=== PATIENT | female | born 1965 | race Caucasian/White ===

== ENCOUNTER 2018-02-18 16:28 | Observation (INO) | payer OTHER ==
[~2018-02-18] VITALS: Ht 160 cm; Wt 68.5 kg
[2018-02-18] MEDS ORDERED: KETOROLAC TROMETHAMINE 30 MG/ML VIAL IV STA (16:59)
[2018-02-18 17:36] LABS: BASOPHILS # (AUTO) 0.1 (0.0-0.1); BASOPHILS % 0.4 % (0.0-1.0); EOSINOPHILS # (AUTO) 0.4 (0.0-0.4); EOSINOPHILS % 3.5 % (0.0-6.0); HEMATOCRIT 40.2 % (34.2-44.1); LYMPHOCYTES % 17.3 % (18.0-39.1); MEAN CORPUSCULAR HEMOGLOBIN 29.4 pg (28-32); MEAN CORPUSCULAR HGB CONC 34.8 g/dL (31-35); MEAN CORPUSCULAR VOLUME 84.5 fL (81-99); MONOCYTES # (AUTO) 0.5 (0.2-0.8); MONOCYTES % 4.4 % (4.4-11.3); NEUTROPHILS # (AUTO) 8.7 (2.1-6.9); NEUTROPHILS % 74.1 % (38.7-80.0); PLATELET COUNT 324 x10e3/uL (140-360); RED BLOOD COUNT 4.76 x10e6/uL (3.6-5.1); RED CELL DISTRIBUTION WIDTH 13.1 % (11.7-14.4)
[2018-02-18 17:43] LABS: CLARITY,URINE SL CLOUDY (CLEAR); COLOR,URINE YELLOW (YELLOW); LEUKOCYTE ESTERASE ,URINE NEGATIVE (NEGATIVE); NITRITE,URINE NEGATIVE (NEGATIVE); PROTEIN,URINE DIPSTICK TRACE (NEGATIVE)
[2018-02-18 17:44] LABS: BILIRUBIN,URINE NEGATIVE (NEGATIVE); KETONES,URINE 1+ (NEGATIVE); URINE UROBILINOGEN 0.2 mg/dL (0.2 - 1)
[2018-02-18 17:50] LABS: ALANINE AMINOTRANSFERASE 28 IU/L (0-55); ALBUMIN 4.6 g/dL (3.5-5.0); ALBUMIN/GLOBULIN RATIO 2.1 (0.8-2.0); ALKALINE PHOSPHATASE 78 IU/L (40-150); ANION GAP 17.6 mmol/L (8-16); BLOOD UREA NITROGEN 16 mg/dL (7-26); BUN/CREATININE RATIO 18 (6-25); CALCIUM 10.3 mg/dL (8.4-10.2); CARBON DIOXIDE 24 mmol/L (22-29); CHLORIDE 103 mmol/L (98-107); CREATININE, SERUM 0.91 mg/dL (0.57-1.11); EST GLOMERULAR FILTRATION RATE > 60 ML/MIN (60-); GLUCOSE 126 mg/dL (74-118); POTASSIUM 4.6 mmol/L (3.5-5.1); SODIUM 140 mmol/L (136-145)
[2018-02-18 17:55] LABS: BACTERIA,URINE MODERATE /HPF; EPITHELIAL CELLS,URINE MANY /LPF; MUCUS,URINE MODERATE (RARE); WBC,URINE (MAN) 0-5 /HPF (0-5)
[2018-02-18] MEDS ORDERED: FLOMAX0.4 MG PO (18:31)
[2018-02-18] MEDS: SODIUM CHLORIDE 0.9% 1000ML 1,000 ML IV SCH ×2 (18:35→21:29)
--- NOTE | 2018-02-18 18:35 | Diagnostic Imaging Report ---
EXAMINATION: CT of the abdomen and pelvis without contrast. TECHNIQUE: Spiral CT images of the abdomen and pelvis were performed from the lung bases to the lesser trochanters. No intravenous contrast was given per renal stone protocol. Coronal and sagittal reformatted images were obtained. COMPARISON: None. CLINICAL HISTORY:Flank pain radiating to left lower quadrant DISCUSSION: ABSENCE OF INTRAVENOUS CONTRAST DECREASES SENSITIVITY FOR DETECTION OF FOCAL LESIONS AND VASCULAR PATHOLOGY. ABDOMEN/PELVIS: LOWER THORAX: Unremarkable. HEPATOBILIARY: Normal hepatic size and contour. 6 mm hypodense lesion in hepatic segment ) series 3, image 41), measures fluid density, consistent with a simple cyst. No other focal lesions. No intra or extrahepatic biliary ductal dilation. GALLBLADDER: No radio-opaque stones or sludge. No wall thickening. SPLEEN: No splenomegaly. PANCREAS: No focal masses or ductal dilatation. ADRENALS: No adrenal nodules. KIDNEYS/URETERS: Left: 8 mm obstructing calculus in the left UPJ, which results in mild to moderate hydronephrosis (series 3, image 76 and coronal image 45). Punctate nonobstructing calculus in the left interpolar region (series 3, image 64). No other left renal or ureteral calculi. No contour abnormalities. No significant perinephric stranding. Right: No renal or ureteral calculi, hydronephrosis or obstruction. No contour abnormalities. No significant perinephric stranding. PELVIC ORGANS/BLADDER: Bladder is unremarkable, without wall thickening or focal lesions. Uterus is unremarkable. No adnexal masses. PERITONEUM/RETROPERITONEUM: No free air or fluid. LYMPH NODES: No intra-abdominal,retroperitoneal, pelvic or inguinal lymphadenopathy. VESSELS: Minimal atherosclerotic calcification of the distal abdominal aorta. GI TRACT: No bowel dilation or evidence of obstruction. Distal descending and sigmoid colon diverticulosis, without diverticulitis. BONES AND SOFT TISSUES: No aggressive lytic lesions. Soft tissues are unremarkable. IMPRESSION: 1. 8 mm nonobstructing calculus in the left UPJ, which results in mild to moderate hydronephrosis. 2. Punctate nonobstructing calculus in the left interpolar region. Signed by: Dr. Morgan Anne M.D. on 02/18/2018 6:31 PM
[2018-02-18] MEDS ORDERED: ONDANSETRON HCL INJ 2 MG/ML VIAL IV PRN (19:00)
[2018-02-18] MEDS ORDERED: MORPHINE SULFATE 2 MG/ML SYR IV PRN (19:00)
[2018-02-18] MEDS ORDERED: MORPHINE SULFATE INJ 4 MG/ML INJ IV PRN (19:15)
[2018-02-18] MEDS ORDERED: LOSARTAN POTASS25 MG (20:19)
[2018-02-18 20:35] VITALS: BP 146/94
[2018-02-18 21:01] VITALS: BP 146/94
[2018-02-18 23:20] VITALS: BP 127/64
[2018-02-19] MEDS: SODIUM CHLORIDE 0.9% 1000ML 1,000 ML IV SCH ×4 (02:55→14:16)
[2018-02-19 05:00] VITALS: BP 143/65
[2018-02-19 05:00] LABS: BASOPHILS % 0.6 % (0.0-1.0); EOSINOPHILS # (AUTO) 0.3 (0.0-0.4); EOSINOPHILS % 4.4 % (0.0-6.0); HEMATOCRIT 35.8 % (34.2-44.1); HEMOGLOBIN 12.1 g/dL (12.0-16.0); LYMPHOCYTES # (AUTO) 2.3 (1.0-3.2); LYMPHOCYTES % 31.1 % (18.0-39.1); MEAN CORPUSCULAR HEMOGLOBIN 29.1 pg (28-32); MEAN CORPUSCULAR HGB CONC 33.8 g/dL (31-35); MEAN CORPUSCULAR VOLUME 86.1 fL (81-99); MONOCYTES # (AUTO) 0.5 (0.2-0.8); MONOCYTES % 6.6 % (4.4-11.3); NEUTROPHILS # (AUTO) 4.1 (2.1-6.9); NEUTROPHILS % 56.7 % (38.7-80.0); PLATELET COUNT 253 x10e3/uL (140-360); RED BLOOD COUNT 4.16 x10e6/uL (3.6-5.1); RED CELL DISTRIBUTION WIDTH 13.1 % (11.7-14.4)
[2018-02-19 05:18] LABS: ALANINE AMINOTRANSFERASE 21 IU/L (0-55); ALBUMIN 3.4 g/dL (3.5-5.0); ALBUMIN/GLOBULIN RATIO 1.7 (0.8-2.0); ALKALINE PHOSPHATASE 60 IU/L (40-150); BLOOD UREA NITROGEN 13 mg/dL (7-26); BUN/CREATININE RATIO 15 (6-25); CALCIUM 8.9 mg/dL (8.4-10.2); CARBON DIOXIDE 24 mmol/L (22-29); CHLORIDE 112 mmol/L (98-107); CREATININE, SERUM 0.85 mg/dL (0.57-1.11); EST GLOMERULAR FILTRATION RATE > 60 ML/MIN (60-); GLUCOSE 136 mg/dL (74-118); SODIUM 143 mmol/L (136-145)
[2018-02-19 07:51] VITALS: BP 110/55
[2018-02-19 11:45] VITALS: BP 131/66
[2018-02-19] MEDS ORDERED: ACETAMINOPHEN 325 MG TAB PO PRN (12:15)
--- NOTE | 2018-02-19 14:43 | Consultation ---
DATE OF CONSULTATION: February 19, 2018 UROLOGY CONSULTATION CONSULTATION CALLED BY: , emergency room. CHIEF COMPLAINT/REASON FOR CONSULTATION: Kidney stone. HISTORY OF PRESENT ILLNESS: Emy Morley is a 52-year-old female with a history of 1 day left-sided acute sharp severe flank pain, 10/10, greater in the anterior abdomen. Denied dysuria. Denied hematuria. Denied fevers. No chills. PAST MEDICAL HISTORY: Kidney stones. MEDICATIONS: Please see MAR. ALLERGIES: NKDA. SOCIAL HISTORY: Denied smoking or drinking. FAMILY HISTORY: Denies urologic stones or malignancies. REVIEW OF SYSTEMS: Noncontributory other than problems as mentioned above for 12 organ systems. PHYSICAL EXAMINATION GENERAL: Middle-aged female, currently in no distress. VITALS: Temperature 97.5, pulse 87, respirations 18, and blood pressure 146/94. HEENT: Sclerae are anicteric. NECK: Supple. BACK: Without costovertebral angle tenderness bilaterally currently. ABDOMEN: Soft. It is nontender. It is nondistended. No palpable mass. No palpable hernias. No palpable inguinal adenopathy. : Normal female external genitalia. EXTREMITIES: No edema. NEURO: Moves all 4 extremities PSYCH: Alert. Mood appropriate. SKIN: Intact. Normal color. PERTINENT LABORATORY DATA: CT scan revealing an 8-mm left proximal ureteral stone with left hydronephrosis, punctate left mid pole stone. Hemoglobin 14, hematocrit 40, platelet count 324,000, and white blood cell count 11,720. Sodium 140, potassium 4.6, chloride 103, bicarb 24, BUN 16, creatinine 0.9, glucose 126, and calcium 7.3. Urinalysis; 0 to 5 reds, 0 to 5 whites, positive protein, positive ketones. IMPRESSION 1. Left ureteral calculus. 2. Left hydronephrosis. 3. Left renal colic. 4. Hypercalcemia. 5. Leukocytosis. 6. Proteinuria. 7. Hypertension, may be chronic. PLAN: The patient wants to employ a trial of passage even with a 20% chance of passing as it is holiday weekend. We will obtain a KUB to see if the stone is moving as the patient is asymptomatic currently. She does not wish to undergo stenting due to remaining asymptomatic and electively follow up for nonemergent management of her partially obstructing stone. Job#: [id number] NATHAN
--- NOTE | 2018-02-19 14:53 | Diagnostic Imaging Report ---
EXAM: ABDOMEN-1VIEW (KUB), DATE: 02/19/2018 9:09 AM INDICATION: Follow-up of left renal stone COMPARISON: CT 02/18/2018 FINDINGS: LINES/TUBES: None BOWEL PATTERN: No evidence for obstruction. SOFT TISSUES: A 0.8 cm calculus projects over the left inferior pole. This likely represents the same 8 mm calculus noted on CT 02/18/2018 at the ureterovesicular junction. The location of the stone on the radiograph overlaps the kidney which may suggest retrograde movement of the stone. A second tiny left renal calculus is not radiographically apparent. LUNG BASES: Clear. BONES: No acute findings. IMPRESSION: Previous 8 mm stone in the left ureteral pelvic junction currently projects more laterally over the inferior pole of the left renal silhouette suggesting retrograde movement. Signed by: DR. Moreno Matson MD on 02/19/2018 2:50 PM
[2018-02-19] MEDS ORDERED: LOSARTAN POTASSIUM 25 MG TAB PO SCH (21:00)
[2018-02-20] MEDS ORDERED: TAMSULOSIN HCL 0.4 MG CAP PO SCH (09:00)
[2018-02-25] MEDS ORDERED: VIT C PO (09:51)
[2018-02-25] MEDS ORDERED: VIT E PO (09:51)
[2018-02-25] MEDS ORDERED: MULTI-VITAMIN1 EACH PO (09:51)
[2018-02-25] MEDS ORDERED: VIT D PO (09:52)
== END 2018-02-19 16:25 | disposition home or self-care (01) ==
LOC: ER 16:28 → ERHOLD 18:57 → IMCU 20:32
DX: N13.2 Hydronephrosis with renal and ureteral calculous obstruction (principal); I10 Essential (primary) hypertension; E83.52 Hypercalcemia; D72.829 Elevated white blood cell count, unspecified; R80.9 Proteinuria, unspecified
CPT/HCPCS: 36415 ×2; 74018; 74176; 80053 ×2; 81001; 85025 ×2; 99284; G0378 ×2; J1885; J7030 ×2

== ENCOUNTER → 2018-02-26 | Day surgery (SDC) | payer OTHER ==
[~2018-02-26] MED LIST: CEFTRIAXONE SOD 1 GM VIAL ONE; DEXAMETHASONE SOD PHOS INJ 4 MG/ML VIAL ONE; FENTANYL CITRATE/PF 100MCG/2 ML INJ ONE; FLOMAX0.4 MG PO; LIDOCAINE HCL 2% LOCAL INJ 5 ML SDV VIAL INJ ONE; LOSARTAN POTASS25 MG; MIDAZOLAM HCL 2 MG/2 ML VIAL ONE; MULTI-VITAMIN1 EACH PO; ONDANSETRON HCL INJ 2 MG/ML VIAL ONE; PROPOFOL IV EMULSION 10 MG/ML 20 ML VIAL ONE; VIT C PO; VIT D PO; VIT E PO
--- NOTE | 2018-02-26 09:03 | Diagnostic Imaging Report ---
PROCEDURE:X-RAY ABDOMEN - KUB COMPARISON:None. INDICATIONS:PREOPERATIVE XRAY FOR ESWL SURGERY FINDINGS: Previously described 8mm calculus now projects over the upper pole of the left renal shadow, likely reflecting a migration within the upper collecting system. No additional suspicious calcifications project over the renal shadows or expected ureteral courses. Bowel gas pattern is nonobstructive. Regional skeletal structures are intact. CONCLUSION: 8mm left renal calculus now projects over the upper pole collecting system. Dictated by: Sean Nava M.D. on 02/26/2018 at 8:26 Electronically approved by: Sean Nava M.D. on 02/26/2018 at 8:26
--- NOTE | 2018-02-26 10:33 | Operative Report ---
DATE OF PROCEDURE: February 26, 2018 PREOPERATIVE DIAGNOSIS: Left kidney stone. POSTOPERATIVE DIAGNOSIS: Left kidney stone. PROCEDURES 1. Staged shock wave lithotripsy, left side. 2. Supervision of fluoroscopy. ANESTHESIA: General. ESTIMATED BLOOD LOSS: Minimal. COMPLICATIONS: None. INDICATIONS: Ms. Morley is a very pleasant 52-year-old female with a history of kidney stones. She and I had a long discussion about alternatives, risks, and benefits, including doing nothing, shock wave lithotripsy, ureteroscopy, percutaneous surgery and open surgery. She voiced understanding of the options, alternatives, risks, and benefits, and she elected to proceed with shock wave lithotripsy. PROCEDURE IN DETAIL: After informed consent was obtained, the patient was taken to the operative suite, placed supine on the operating table. The stone was then localized in the X, Y and Z planes with the lithotriptor machine. A total of 3000 shocks at a maximum power setting of 6 were delivered to the stone. The patient tolerated the procedure well and was transported to the recovery room in excellent condition. SUPERVISION OF FLUOROSCOPY: I was present throughout the entire procedure and I supervised the use of fluoroscopy as no radiologist was present. Job#: [id number] ID
[2018-02-26 10:35] VITALS: BP 110/72
== END | disposition home or self-care (01) ==
LOC: OR 06:20
PROVIDERS: ATTEND Urology
DX: N20.0 Calculus of kidney (principal); I10 Essential (primary) hypertension; Z01.810 Encounter for preprocedural cardiovascular examination
CPT/HCPCS: 50590; 74018; 93005; J0696; J1100; J2001; J2250; J2405

== ENCOUNTER → 2018-04-16 | Outpatient (CLI) | payer OTHER ==
[~2018-04-16] MED LIST changes: -CEFTRIAXONE SOD 1 GM VIAL ONE; -DEXAMETHASONE SOD PHOS INJ 4 MG/ML VIAL ONE; -FENTANYL CITRATE/PF 100MCG/2 ML INJ ONE; -LIDOCAINE HCL 2% LOCAL INJ 5 ML SDV VIAL INJ ONE; -MIDAZOLAM HCL 2 MG/2 ML VIAL ONE; -ONDANSETRON HCL INJ 2 MG/ML VIAL ONE; -PROPOFOL IV EMULSION 10 MG/ML 20 ML VIAL ONE
--- NOTE | 2018-04-16 09:18 | Diagnostic Imaging Report ---
PROCEDURE:X-RAY ABDOMEN - KUB COMPARISON:KUB 02/26/[address] Abdomen/Pelvis 02/18/18. INDICATIONS:CALCULUS OF KIDNEY FINDINGS: A 7 mm calcification projects over the left pelvis, note is made that there was a not a phlebolith at this location from prior imaging. No calcification is seen overlying the kidneys although the left kidney is partially obscured by overlying bowel gas. There is a non-obstructed bowel-gas pattern. There are no acute osseous abnormalities. The lung bases are clear. CONCLUSION: A 7 mm stone projecting over the left pelvis, likely reflecting progression of stone into the left distal ureter/UVJ or passage into the bladder. Dictated by: JORDIN HICKS M.D. on 04/16/2018 at 9:27 Electronically approved by: JORDIN HICKS M.D. on 04/16/2018 at 9:27
== END ==
LOC: RAD 08:36
PROVIDERS: ATTEND Urology
DX: N20.0 Calculus of kidney (principal); N39.0 Urinary tract infection, site not specified
CPT/HCPCS: 74018